=== PATIENT | female | born 1970 | race African-American/Black ===

== ENCOUNTER 2016-10-26 00:30 | Emergency (ER) | payer OTHER ==
[~2016-10-26] VITALS: Ht 157.5 cm; Wt 76.7 kg
[~2016-10-26 00:30] MED LIST: ALBUTEROL2.5 MG/3 M IH; BUPROPION XL150 MG PO; DESYREL100 MG PO; LEVOFLOXACIN750 MG PO; MOTRIN800 MG PO; NALTREXONE HCL50 MG PO; NOHOMEMEDS; NORCO 5/3251 TABLET PO; PREDNISONE10 MG PO; PREDNISONE20 MG PO; PROAIR HFA8.5 GM IH; PROVENTIL,2.5 MG/3 M IH; TRAZODONE HCL100 MG PO; ZITHROMAX250 MG PO
[2016-10-26] MEDS ORDERED: KEFLEX500 MG PO (03:58)
[2016-10-26 04:30] VITALS: BP 148/97
== END 2016-10-26 04:33 | disposition home or self-care (01) ==
LOC: EME 00:30
DX: S01.511A Laceration without foreign body of lip, initial encounter (principal); S05.11XA Contusion of eyeball and orbital tissues, right eye, initial encounter; Y04.8XXA Assault by other bodily force, initial encounter; Y07.59 Other non-family member, perpetrator of maltreatment and neglect; Z23 Encounter for immunization; J45.909 Unspecified asthma, uncomplicated; Z98.84 Bariatric surgery status; F17.200 Nicotine dependence, unspecified, uncomplicated
CPT/HCPCS: 70450; 70486; 99281; 99285

== ENCOUNTER 2016-10-28 12:19 | Emergency (ER) | payer OTHER ==
[~2016-10-28] VITALS: Ht 157.5 cm; Wt 77.6 kg
[~2016-10-28 12:19] MED LIST changes: +KEFLEX500 MG PO
[2016-10-28] MEDS ORDERED: PERCOCET 5/31 TABLET PO (15:09)
[2016-10-28 15:35] VITALS: BP 144/73
== END 2016-10-28 15:36 | disposition home or self-care (01) ==
LOC: EME 12:19
DX: S01.511D Laceration without foreign body of lip, subsequent encounter (principal)
CPT/HCPCS: 99281; 99283

== ENCOUNTER 2016-11-03 09:52 | Emergency (ER) | payer OTHER ==
[~2016-11-03] VITALS: Ht 157.5 cm; Wt 75.2 kg
[~2016-11-03 09:52] MED LIST changes: +PERCOCET 5/31 TABLET PO
[2016-11-03] MEDS ORDERED: NORCO 5/3251 TABLET PO (11:14)
[2016-11-03 11:37] VITALS: BP 132/91
== END 2016-11-03 11:39 | disposition home or self-care (01) ==
LOC: EME 09:52
DX: R51 Headache (principal); R22.0 Localized swelling, mass and lump, head; J45.909 Unspecified asthma, uncomplicated; F17.200 Nicotine dependence, unspecified, uncomplicated
CPT/HCPCS: 99281; 99283

== ENCOUNTER 2017-01-22 00:14 | Emergency (ER) | payer OTHER ==
[~2017-01-22] VITALS: Ht 157.5 cm; Wt 73.0 kg
[2017-01-22 00:24] VITALS: BP 97/52
[2017-01-22 01:12] LABS: HEMATOCRIT 35.9 % (36.0-46.0); MCH 27.2 PG (29.0-34.0); MCHC 31.8 G/DL (30.0-36.0); MCV 85.7 FL (83-99); MEAN PLAT.VOLUME 8.8 uM^3 (9.5-12.4); PLATELET COUNT 432 K/uL (156-360); RBC DIS.WIDTH-CV 20.1 % (11.8-14.6); RBC DIS.WIDTH-SD 62.7 % (39-53); RED BLOOD COUNT 4.19 M/uL (3.80-5.20); WHITE BLOOD COUNT 5.3 K/uL (4.1-10.2)
[2017-01-22 01:13] LABS: ADD MIUA? YES; BILIRUBIN NEGATIVE; BLOOD SMALL; COLOR STRAW ((YELLOW)); GLUCOSE (STRIP) NEGATIVE; KETONES NEGATIVE; LEUKOCYTES NEGATIVE; NITRITE NEGATIVE; PROTEIN (STRIP) NEGATIVE; SPECIFIC GRAVITY 1.003 (1.000-1.030); UROBILINOGEN 0.2 MG/DL (0.2-1.0)
[2017-01-22 01:18] LABS: BACTERIA NONE SEEN /HPF; EPITHELIAL CELLS RARE /HPF; MUCUS NONE SEEN /LPF; RED BLOOD CELLS 0-5 /HPF (0-5); UCUL ADDED? NO; WHITE BLOOD CELLS 0-5 /HPF (0-5)
[2017-01-22 01:24] LABS: CHLORIDE 113 mEq/L (99-109); POTASSIUM 3.3 mEq/L (3.7-5.4); SODIUM 145 mEq/L (136-147)
[2017-01-22 01:25] LABS: AMYLASE 78 IU/L (1-118)
[2017-01-22 01:26] LABS: GLUCOSE 104 mg/dL (70-99)
[2017-01-22 01:27] LABS: ANION GAP 15 MEQ/L (2-14)
[2017-01-22 01:29] LABS: SERUM ETHYL ALCOHOL 340 mg/dL
[2017-01-22 01:30] LABS: AMPHETAMINE NEGATIVE (500 ng/mL); BARBITURATES NEGATIVE (200 ng/mL); BENZODIAZEPINES NEGATIVE (150 ng/mL); COCAINE NEGATIVE (150 ng/mL); INTERNAL CONTROLS VALID? YES; METHADONE NEGATIVE (200 ng/mL); METHAMPHETAMINE NEGATIVE (500 ng/mL); OPIATES (MORPHINE) NEGATIVE (100 ng/mL); OXYCODONE NEGATIVE (100 ng/mL); PHENCYCLIDINE NEGATIVE (25 ng/mL); PROPOXYPHENE NEGATIVE (300 ng/mL); THC CANNABINOIDS NEGATIVE (50 ng/mL); TRICYCLIC ANTIDEPRESSANTS NEGATIVE (300 ng/mL)
[2017-01-22 01:30] LABS: GFR ESTIMATE (CALCULATED) > 59 mL/min/
[2017-01-22 01:32] LABS: UREA NITROGEN (BUN) 8 mg/dL (9-23)
[2017-01-22 01:33] LABS: SALICYLATE < 5.0 MG/DL (15-30)
[2017-01-22 01:34] LABS: LIPASE 80 U/L (1.0-51.0)
[2017-01-22 01:42] LABS: QUANTITATIVE HCG < 4.0 MIU/ML
[2017-01-22 02:56] LABS: EOSINOPHIL (%) 0.4 % (0-5); HEMATOLOGY COMMENT 1 SMEAR COMPATIBLE; IMMATURE GRANULOCYTE (%) 0.2 % (0.0-0.7); INSTRUMENT ABS NEUTROPHIL CT 2.9 K/uL; LYMPHOCYTE COUNT 1.6 K/uL (1.0-2.8); MONOCYTE (%) 14.3 % (3-12); MONOCYTE COUNT 0.8 K/uL (0-0.8); NEUTROPHIL (%) 54.1 % (45-76); NEUTROPHIL COUNT 2.9 K/uL (1.8-6.4)
[2017-01-22] MEDS ORDERED: MOTRIN600 MG PO (05:22)
[2017-01-22] MEDS ORDERED: TYLENOL WITH C1 EACH PO (05:22)
== END 2017-01-22 02:19 | disposition left against medical advice (07) ==
LOC: EME 00:14
PROVIDERS: Emergency Medicine
DX: S01.112A Laceration without foreign body of left eyelid and periocular area, initial encounter (principal); F10.129 Alcohol abuse with intoxication, unspecified; Y90.8 Blood alcohol level of 240 mg/100 ml or more; F19.10 Other psychoactive substance abuse, uncomplicated; Y09 Assault by unspecified means; J45.909 Unspecified asthma, uncomplicated; F17.210 Nicotine dependence, cigarettes, uncomplicated
CPT/HCPCS: 70450; 70486; 71010; 72125; 80048; 81003; 82150; 83690; 84702; 85025; 86900; 86901; 99281; 99285; G0480; J7030

== ENCOUNTER 2017-01-22 04:01 | Emergency (ER) | payer OTHER ==
[~2017-01-22] VITALS: Ht 157.5 cm; Wt 72.3 kg
[2017-01-22] MEDS ORDERED: TYLENOL WITH C1 EACH PO (05:22)
[2017-01-22] MEDS ORDERED: MOTRIN600 MG PO (05:22)
[2017-01-22 05:41] VITALS: BP 116/96
== END 2017-01-22 05:42 | disposition home or self-care (01) ==
LOC: EME 04:01
PROC: 0HQ1XZZ Repair Face Skin, External Approach (ICD-10-PCS; principal; 2017-01-22)
DX: S01.112A Laceration without foreign body of left eyelid and periocular area, initial encounter (principal); Y09 Assault by unspecified means; F17.200 Nicotine dependence, unspecified, uncomplicated
CPT/HCPCS: 99281; 99284

== ENCOUNTER 2017-04-11 22:48 | Emergency (ER) | payer OTHER ==
[~2017-04-11] VITALS: Ht 157.5 cm; Wt 73.8 kg
[~2017-04-11 22:48] MED LIST changes: +MOTRIN600 MG PO; +TYLENOL WITH C1 EACH PO
[2017-04-12 00:07] LABS: HEMATOCRIT 33.3 % (36.0-46.0); MCH 27.6 PG (29.0-34.0); MCHC 31.8 G/DL (30.0-36.0); MCV 86.7 FL (83-99); MEAN PLAT.VOLUME 9.3 uM^3 (9.5-12.4); NRBC (%) 0.4 /100 WBC (0-0); PLATELET COUNT 285 K/uL (156-360); RBC DIS.WIDTH-CV 22.6 % (11.8-14.6); RED BLOOD COUNT 3.84 M/uL (3.80-5.20); WHITE BLOOD COUNT 5.3 K/uL (4.1-10.2)
[2017-04-12 00:15] LABS: CHLORIDE 108 mEq/L (99-109); POTASSIUM 3.4 mEq/L (3.7-5.4); SODIUM 143 mEq/L (136-147)
[2017-04-12 00:17] LABS: GLUCOSE 86 mg/dL (70-99)
[2017-04-12 00:18] LABS: ANION GAP 14 MEQ/L (2-14)
[2017-04-12 00:19] LABS: TOTAL BILIRUBIN 0.4 mg/dL (0.0-1.0)
[2017-04-12 00:20] LABS: ALKALINE PHOSPHATASE 56 IU/L (3-129)
[2017-04-12 00:21] LABS: GFR ESTIMATE (CALCULATED) > 59 mL/min/
[2017-04-12 00:22] LABS: UREA NITROGEN (BUN) 8 mg/dL (9-23)
[2017-04-12] MEDS ORDERED: MEDROL DOSEPAK4 MG PO (00:30)
[2017-04-12] MEDS ORDERED: KEFLEX500 MG PO (00:30)
[2017-04-12 00:46] VITALS: BP 120/68
== END 2017-04-12 00:47 | disposition home or self-care (01) ==
LOC: EME 22:48
PROVIDERS: Physician Assistant
DX: M79.89 Other specified soft tissue disorders (principal); S80.862A Insect bite (nonvenomous), left lower leg, initial encounter; S80.861A Insect bite (nonvenomous), right lower leg, initial encounter; L08.9 Local infection of the skin and subcutaneous tissue, unspecified; W57.XXXA Bitten or stung by nonvenomous insect and other nonvenomous arthropods, initial encounter; T78.49XA Other allergy, initial encounter; Z90.710 Acquired absence of both cervix and uterus; Z98.84 Bariatric surgery status; F17.200 Nicotine dependence, unspecified, uncomplicated
CPT/HCPCS: 80053; 85027; 99281; 99284; J7512

== ENCOUNTER 2017-06-25 18:07 | Emergency (ER) | payer OTHER ==
[~2017-06-25] VITALS: Ht 157.5 cm; Wt 72.1 kg
[~2017-06-25 18:07] MED LIST changes: +MEDROL DOSEPAK4 MG PO
[2017-06-25 20:18] LABS: HEMATOCRIT 37.1 % (36.0-46.0); MCH 26.2 PG (29.0-34.0); MCHC 32.1 G/DL (30.0-36.0); MCV 81.5 FL (83-99); MEAN PLAT.VOLUME 9.1 uM^3 (9.5-12.4); PLATELET COUNT 333 K/uL (156-360); RBC DIS.WIDTH-CV 21.3 % (11.8-14.6); RBC DIS.WIDTH-SD 59.8 % (39-53); RED BLOOD COUNT 4.55 M/uL (3.80-5.20); WHITE BLOOD COUNT 3.6 K/uL (4.1-10.2)
[2017-06-25 20:27] LABS: CHLORIDE 106 mEq/L (99-109); POTASSIUM 3.9 mEq/L (3.7-5.4); SODIUM 139 mEq/L (136-147)
[2017-06-25 20:29] LABS: GLUCOSE 87 mg/dL (70-99)
[2017-06-25 20:30] LABS: ANION GAP 11 MEQ/L (2-14)
[2017-06-25 20:31] LABS: TOTAL BILIRUBIN 0.4 mg/dL (0.0-1.0)
[2017-06-25 20:32] LABS: ALKALINE PHOSPHATASE 64 IU/L (3-129)
[2017-06-25 20:33] LABS: GFR ESTIMATE (CALCULATED) > 59 mL/min/
[2017-06-25 20:34] LABS: UREA NITROGEN (BUN) 8 mg/dL (9-23)
[2017-06-25 20:36] LABS: URIC ACID 5.9 mg/dL (3.1-9.2)
[2017-06-25] MEDS ORDERED: LASIX20 MG PO (21:28)
[2017-06-25] MEDS ORDERED: MOBIC7.5 MG PO (21:28)
[2017-06-25] MEDS ORDERED: KEFLEX500 MG PO (21:28)
[2017-06-25 21:48] VITALS: BP 146/98
== END 2017-06-25 21:52 | disposition home or self-care (01) ==
LOC: EME 18:07
PROVIDERS: Physician Assistant
DX: R60.0 Localized edema (principal); R20.0 Anesthesia of skin; Z98.84 Bariatric surgery status; Z90.710 Acquired absence of both cervix and uterus; F17.200 Nicotine dependence, unspecified, uncomplicated
CPT/HCPCS: 80053; 83880; 84550; 85027; 93970; 99281; 99284

== ENCOUNTER 2017-08-23 13:15 | Emergency (ER) | payer OTHER ==
[~2017-08-23] VITALS: Ht 157.5 cm; Wt 98.8 kg
[~2017-08-23 13:15] MED LIST changes: +LASIX20 MG PO; +MOBIC7.5 MG PO
[2017-08-23 14:49] LABS: MCH 26.4 PG (29.0-34.0); MCHC 32.5 G/DL (30.0-36.0); MCV 81.1 FL (83-99); MEAN PLAT.VOLUME 8.9 uM^3 (9.5-12.4); NRBC (%) 0.9 /100 WBC (0-0); PLATELET COUNT 199 K/uL (156-360); RBC DIS.WIDTH-CV 24.8 % (11.8-14.6); RBC DIS.WIDTH-SD 72.5 % (39-53); RED BLOOD COUNT 4.44 M/uL (3.80-5.20); WHITE BLOOD COUNT 4.5 K/uL (4.1-10.2)
[2017-08-23 14:50] LABS: EOSINOPHIL (%) 0.2 % (0-5); IMMATURE GRANULOCYTE (%) 0.4 % (0.0-0.7); INSTRUMENT ABS NEUTROPHIL CT 3.2 K/uL; LYMPHOCYTE COUNT 0.5 K/uL (1.0-2.8); MONOCYTE (%) 17.3 % (3-12); MONOCYTE COUNT 0.8 K/uL (0-0.8); NEUTROPHIL COUNT 3.2 K/uL (1.8-6.4)
[2017-08-23 14:58] LABS: MAGNESIUM 1.8 mg/dL (1.3-2.7)
[2017-08-23 15:02] LABS: SERUM ETHYL ALCOHOL < 10 mg/dL
[2017-08-23 15:09] LABS: TROP-I INTERPRETATION NEGATIVE; TROPONIN-I < 0.01 ng/mL (0.0-0.30)
[2017-08-23] MEDS ORDERED: TYLENOL REGULA325 MG PO (17:37)
[2017-08-23] MEDS ORDERED: ZOFRAN4 MG PO (17:37)
[2017-08-23] MEDS ORDERED: PREDNISONE20 MG PO (17:37)
[2017-08-23 17:54] VITALS: BP 141/74
== END 2017-08-23 17:57 | disposition home or self-care (01) ==
LOC: EME 13:15
PROVIDERS: Emergency Medicine
DX: J06.9 Acute upper respiratory infection, unspecified (principal); J45.909 Unspecified asthma, uncomplicated; F10.20 Alcohol dependence, uncomplicated; Y90.0 Blood alcohol level of less than 20 mg/100 ml; F17.200 Nicotine dependence, unspecified, uncomplicated; Z98.84 Bariatric surgery status
CPT/HCPCS: 71020; 83735; 83880; 84484; 85025; 87502; 93005; 94640; 99281; 99285; G0480; J2405; J2930; J7030

== ENCOUNTER 2017-10-12 14:46 | Emergency (ER) | payer OTHER ==
[~2017-10-12] VITALS: Ht 157.5 cm; Wt 70.9 kg
[~2017-10-12 14:46] MED LIST changes: +TYLENOL REGULA325 MG PO; +ZOFRAN4 MG PO
[2017-10-12 15:15] LABS: HEMATOCRIT 34.5 % (36.0-46.0); HEMOGLOBIN 11.1 G/DL (11.9-15.5); MCH 28.2 PG (29.0-34.0); MCHC 32.2 G/DL (30.0-36.0); MCV 87.8 FL (83-99); PLATELET COUNT 223 K/uL (156-360); RBC DIS.WIDTH-CV 27.5 % (11.8-14.6); RBC DIS.WIDTH-SD 87.4 % (39-53); RED BLOOD COUNT 3.93 M/uL (3.80-5.20); WHITE BLOOD COUNT 4.7 K/uL (4.1-10.2)
[2017-10-12 15:24] LABS: CHLORIDE 106 mEq/L (99-109); POTASSIUM 3.1 mEq/L (3.7-5.4); SODIUM 140 mEq/L (136-147)
[2017-10-12 15:26] LABS: GLUCOSE 90 mg/dL (70-99)
[2017-10-12 15:29] LABS: CREATININE 0.7 mg/dL (0.6-1.3); GFR ESTIMATE (CALCULATED) > 59 mL/min/
[2017-10-12 15:30] LABS: UREA NITROGEN (BUN) 7 mg/dL (9-23)
[2017-10-12 15:39] LABS: TROP-I INTERPRETATION NEGATIVE; TROPONIN-I < 0.01 ng/mL (0.0-0.30)
[2017-10-12 15:51] LABS: SERUM ETHYL ALCOHOL 180 mg/dL
[2017-10-12 18:45] LABS: TROP-I INTERPRETATION NEGATIVE; TROPONIN-I < 0.01 ng/mL (0.0-0.30)
[2017-10-12] MEDS ORDERED: K-DUR20 MEQ PO (19:05)
[2017-10-12 19:14] VITALS: BP 123/79
== END 2017-10-12 19:15 | disposition home or self-care (01) ==
LOC: EME 14:46
PROVIDERS: Nurse Practitioner Family
DX: R07.2 Precordial pain (principal); F17.200 Nicotine dependence, unspecified, uncomplicated; J45.909 Unspecified asthma, uncomplicated; Z98.84 Bariatric surgery status; R06.02 Shortness of breath; F10.10 Alcohol abuse, uncomplicated; E87.6 Hypokalemia
CPT/HCPCS: 71046; 80048; 84484; 85027; 93005; 99281; 99285; G0480

== ENCOUNTER 2017-10-18 10:43 | Emergency (ER) | payer OTHER ==
[~2017-10-18] VITALS: Ht 157.5 cm; Wt 76.2 kg
[~2017-10-18 10:43] MED LIST changes: +K-DUR20 MEQ PO
[2017-10-18 11:18] LABS: HEMATOCRIT 32.1 % (36.0-46.0); HEMOGLOBIN 10.3 G/DL (11.9-15.5); MCH 28.5 PG (29.0-34.0); MCHC 32.1 G/DL (30.0-36.0); MCV 88.7 FL (83-99); RBC DIS.WIDTH-CV 26.9 % (11.8-14.6); RBC DIS.WIDTH-SD 87.2 % (39-53); RED BLOOD COUNT 3.62 M/uL (3.80-5.20); WHITE BLOOD COUNT 4.6 K/uL (4.1-10.2)
[2017-10-18 11:23] LABS: PLATELET COUNT 293 K/uL (156-360)
[2017-10-18 11:29] LABS: ALBUMIN 3.4 g/dL (3.2-4.8)
[2017-10-18 11:30] LABS: CHLORIDE 110 mEq/L (99-109); POTASSIUM 3.5 mEq/L (3.7-5.4); SODIUM 141 mEq/L (136-147)
[2017-10-18 11:32] LABS: GLUCOSE 80 mg/dL (70-99); TOTAL PROTEIN 6.3 g/dL (6.4-8.3)
[2017-10-18 11:34] LABS: TOTAL BILIRUBIN 0.6 mg/dL (0.0-1.0)
[2017-10-18 11:35] LABS: ALKALINE PHOSPHATASE 53 IU/L (3-129)
[2017-10-18 11:36] LABS: CREATININE 0.6 mg/dL (0.6-1.3); GFR ESTIMATE (CALCULATED) > 59 mL/min/
[2017-10-18 11:37] LABS: AST (GOT) 66 IU/L (2-34); UREA NITROGEN (BUN) 12 mg/dL (9-23)
[2017-10-18 11:38] LABS: ALT (GPT) 34 IU/L (3-49)
[2017-10-18 11:39] LABS: LIPASE 80 U/L (1.0-51.0)
[2017-10-18 11:45] LABS: BASOPHIL (%) 0.9 % (0-1); EOSINOPHIL (%) 0.2 % (0-5); IMMATURE GRANULOCYTE (%) 0.7 % (0.0-0.7); LYMPHOCYTE (%) 17.8 % (15-42); LYMPHOCYTE COUNT 0.8 K/uL (1.0-2.8); MONOCYTE (%) 16.5 % (3-12); MONOCYTE COUNT 0.8 K/uL (0-0.8); NEUTROPHIL (%) 63.9 % (45-76)
[2017-10-18] MEDS ORDERED: ULTRAM50 MG PO (15:22)
[2017-10-18 15:35] LABS: APPEARANCE SL.HAZY ((CLEAR)); BILIRUBIN NEGATIVE; BLOOD NEGATIVE; COLOR YELLOW ((YELLOW)); GLUCOSE (STRIP) NEGATIVE; KETONES NEGATIVE; LEUKOCYTES NEGATIVE; NITRITE NEGATIVE; PROTEIN (STRIP) 30; SPECIFIC GRAVITY 1.027 (1.000-1.030)
[2017-10-18 15:44] LABS: BACTERIA RARE /HPF; CALCIUM OXALATE CRYSTALS 4+ /HPF; EPITHELIAL CELLS 1+ /HPF; MUCUS TRACE /LPF; UCUL ADDED? NO; WHITE BLOOD CELLS 0-5 /HPF (0-5)
[2017-10-18 16:28] VITALS: BP 133/89
== END 2017-10-18 16:28 | disposition home or self-care (01) ==
LOC: EME 10:43
PROVIDERS: Emergency Medicine
DX: K43.9 Ventral hernia without obstruction or gangrene (principal); K76.0 Fatty (change of) liver, not elsewhere classified; J45.909 Unspecified asthma, uncomplicated; F17.200 Nicotine dependence, unspecified, uncomplicated; Z90.710 Acquired absence of both cervix and uterus; Z98.84 Bariatric surgery status
CPT/HCPCS: 74177; 80053; 81003; 83605; 83690; 85025; 99281; 99284; J1630; J3010; J7030

== ENCOUNTER 2017-11-13 20:50 | Emergency (ER) | payer OTHER ==
[~2017-11-13] VITALS: Ht 157.5 cm; Wt 71.3 kg
[~2017-11-13 20:50] MED LIST changes: +ULTRAM50 MG PO
[2017-11-13 22:05] LABS: APPEARANCE CLOUDY ((CLEAR)); BILIRUBIN NEGATIVE; BLOOD NEGATIVE; COLOR YELLOW ((YELLOW)); GLUCOSE (STRIP) NEGATIVE; KETONES NEGATIVE; LEUKOCYTES SMALL; NITRITE NEGATIVE; PROTEIN (STRIP) 30; SPECIFIC GRAVITY 1.013 (1.000-1.030)
[2017-11-13 22:27] LABS: HEMATOCRIT 37.2 % (36.0-46.0); MCH 28.4 PG (29.0-34.0); MCHC 32.3 G/DL (30.0-36.0); MCV 87.9 FL (83-99); NRBC (%) 0.4 /100 WBC (0-0); PLATELET COUNT 330 K/uL (156-360); RBC DIS.WIDTH-CV 25.2 % (11.8-14.6); RBC DIS.WIDTH-SD 80.2 % (39-53); RED BLOOD COUNT 4.23 M/uL (3.80-5.20); WHITE BLOOD COUNT 9.2 K/uL (4.1-10.2)
[2017-11-13 22:32] LABS: BACTERIA 2+ /HPF; EPITHELIAL CELLS 3+ /HPF; MUCUS NONE SEEN /LPF; RED BLOOD CELLS NONE SEEN /HPF (0-5); UCUL ADDED? YES
[2017-11-13 22:36] LABS: ALBUMIN 3.9 g/dL (3.2-4.8); CHLORIDE 106 mEq/L (99-109); POTASSIUM 3.1 mEq/L (3.7-5.4)
[2017-11-13 22:37] LABS: SODIUM 138 mEq/L (136-147)
[2017-11-13 22:39] LABS: GLUCOSE 89 mg/dL (70-99); TOTAL PROTEIN 7.5 g/dL (6.4-8.3)
[2017-11-13 22:41] LABS: TOTAL BILIRUBIN 0.8 mg/dL (0.0-1.0)
[2017-11-13 22:42] LABS: ALKALINE PHOSPHATASE 92 IU/L (3-129); SERUM ETHYL ALCOHOL 143 mg/dL
[2017-11-13 22:43] LABS: CREATININE 0.6 mg/dL (0.6-1.3); GFR ESTIMATE (CALCULATED) > 59 mL/min/
[2017-11-13 22:44] LABS: AST (GOT) 61 IU/L (2-34); UREA NITROGEN (BUN) 8 mg/dL (9-23)
[2017-11-13 22:45] LABS: ALT (GPT) 34 IU/L (3-49)
[2017-11-13 22:51] LABS: QUANTITATIVE HCG < 4.0 MIU/ML
[2017-11-13] MEDS ORDERED: ULTRACET1 TABLET PO (23:04)
[2017-11-13] MEDS ORDERED: ZOFRAN ODT8 MG PO (23:04)
[2017-11-13] MEDS ORDERED: BENTYL20 MG PO (23:04)
[2017-11-13 23:51] VITALS: BP 119/78
== END 2017-11-13 23:57 | disposition home or self-care (01) ==
LOC: EME 20:50
DX: K43.9 Ventral hernia without obstruction or gangrene (principal); E87.6 Hypokalemia; J45.909 Unspecified asthma, uncomplicated; F17.200 Nicotine dependence, unspecified, uncomplicated; Z87.19 Personal history of other diseases of the digestive system; Z98.84 Bariatric surgery status; Z90.710 Acquired absence of both cervix and uterus; Z90.49 Acquired absence of other specified parts of digestive tract
CPT/HCPCS: 80053; 81003; 83605; 84702; 85027; 87086; 99281; 99285; G0480

== ENCOUNTER 2017-12-11 07:59 | Day surgery (SDC) | payer OTHER ==
[~2017-12-11] VITALS: Ht 157.5 cm; Wt 71.7 kg
[~2017-12-11 07:59] MED LIST changes: +BENTYL20 MG PO; +ULTRACET1 TABLET PO; +ZOFRAN ODT8 MG PO
[2017-12-11 08:33] VITALS: BP 127/82
[2017-12-11 14:06] VITALS: BP 104/70
[2017-12-11 19:45] VITALS: BP 123/70
[2017-12-12 00:25] VITALS: BP 109/67
[2017-12-12 03:22] VITALS: BP 122/76
[2017-12-12 05:48] LABS: HEMATOCRIT 29.7 % (36.0-46.0); HEMOGLOBIN 9.3 G/DL (11.9-15.5); MCH 28.9 PG (29.0-34.0); MCHC 31.3 G/DL (30.0-36.0); MCV 92.2 FL (83-99); NRBC (%) 0.4 /100 WBC (0-0); RBC DIS.WIDTH-CV 26.7 % (11.8-14.6); RED BLOOD COUNT 3.22 M/uL (3.80-5.20); WHITE BLOOD COUNT 8.2 K/uL (4.1-10.2)
[2017-12-12 06:11] LABS: PLATELET COUNT 221 K/uL (156-360)
[2017-12-12 06:15] LABS: ALBUMIN 3.5 G/DL (3.2-4.8); ALKALINE PHOSPHATASE 44 IU/L (3-129); ALT (GPT) 24 IU/L (3-49); AST (GOT) 42 IU/L (2-34); CHLORIDE 107 MEQ/L (99-109); CREATININE 0.6 MG/DL (0.6-1.3); GFR ESTIMATE (CALCULATED) > 59 mL/min/; GLUCOSE 90 mg/dL (70-99); MAGNESIUM 2.1 mg/dl (1.3-2.7); PHOSPHORUS 3.1 mg/dL (2.5-4.9); POTASSIUM 3.5 MEQ/L (3.7-5.4); SODIUM 139 MEQ/L (136-147); TOTAL BILIRUBIN 0.7 MG/DL (0.0-1.0); UREA NITROGEN (BUN) 8 mg/dL (9-23)
[2017-12-12 06:16] LABS: TOTAL PROTEIN 5.9 G/DL (6.4-8.3)
[2017-12-12 07:06] VITALS: BP 126/69
[2017-12-12] MEDS ORDERED: PERCOCET 5/31 TABLET PO (08:36)
[2017-12-12] MEDS ORDERED: COLACE100 MG PO (08:36)
== END 2017-12-12 12:06 | disposition home or self-care (01) ==
LOC: SDC 07:59 → 2EAST 12:43 → 2SOUTH 12:43 → ENRESERV 12:49 → 2EAST 13:46 → SDC 15:00 → 2EAST 12-12 12:06
PROVIDERS: Surgery
PROC: 0DNU4ZZ Release Omentum, Percutaneous Endoscopic Approach (ICD-10-PCS; principal; 2017-12-11)
PROC: 0WUF4JZ Supplement Abdominal Wall with Synthetic Substitute, Percutaneous Endoscopic Approach (ICD-10-PCS; principal; 2017-12-11)
DX: K43.0 Incisional hernia with obstruction, without gangrene (principal); K66.0 Peritoneal adhesions (postprocedural) (postinfection); Z98.84 Bariatric surgery status; Z90.710 Acquired absence of both cervix and uterus; F17.200 Nicotine dependence, unspecified, uncomplicated
CPT/HCPCS: 80053; 83735; 84100; 85027; C1781; G0378; J0690; J1100; J1170; J1650; J1885; J2405; J2710; J2795; J3475; J7120; J7643; Q0175; S0020

== ENCOUNTER 2017-12-21 16:02 | Emergency (ER) | payer OTHER ==
[~2017-12-21] VITALS: Ht 157.5 cm; Wt 71.0 kg
[~2017-12-21 16:02] MED LIST changes: +COLACE100 MG PO
[2017-12-21 16:35] LABS: HEMATOCRIT 32.4 % (36.0-46.0); HEMOGLOBIN 10.8 G/DL (11.9-15.5); MCH 29.3 PG (29.0-34.0); MCHC 33.3 G/DL (30.0-36.0); MCV 87.8 FL (83-99); NRBC (%) 0.5 /100 WBC (0-0); PLATELET COUNT 457 K/uL (156-360); RED BLOOD COUNT 3.69 M/uL (3.80-5.20); WHITE BLOOD COUNT 5.7 K/uL (4.1-10.2)
[2017-12-21 16:41] LABS: CHLORIDE 104 mEq/L (99-109); POTASSIUM 3.3 mEq/L (3.7-5.4); SODIUM 138 mEq/L (136-147)
[2017-12-21 16:44] LABS: GLUCOSE 79 mg/dL (70-99); TOTAL PROTEIN 5.7 g/dL (6.4-8.3)
[2017-12-21 16:45] LABS: TOTAL BILIRUBIN 0.7 mg/dL (0.0-1.0)
[2017-12-21 16:46] LABS: SERUM ETHYL ALCOHOL 105 mg/dL
[2017-12-21 16:47] LABS: ALKALINE PHOSPHATASE 74 IU/L (3-129); CREATININE 0.6 mg/dL (0.6-1.3); GFR ESTIMATE (CALCULATED) > 59 mL/min/
[2017-12-21 16:48] LABS: UREA NITROGEN (BUN) 11 mg/dL (9-23)
[2017-12-21 16:49] LABS: AST (GOT) 48 IU/L (2-34)
[2017-12-21 16:50] LABS: ALT (GPT) 17 IU/L (3-49)
[2017-12-21 16:51] LABS: LIPASE 134 U/L (1.0-51.0)
[2017-12-21] MEDS ORDERED: ZOFRAN4 MG PO (18:25)
[2017-12-21 18:44] LABS: APPEARANCE CLEAR ((CLEAR)); BILIRUBIN NEGATIVE; BLOOD NEGATIVE; COLOR YELLOW ((YELLOW)); GLUCOSE (STRIP) NEGATIVE; KETONES 20; LEUKOCYTES NEGATIVE; NITRITE NEGATIVE; PROTEIN (STRIP) NEGATIVE; UCUL ADDED? NO
[2017-12-21 18:57] LABS: AMPHETAMINE NEGATIVE (500 ng/mL); BARBITURATES NEGATIVE (200 ng/mL); BENZODIAZEPINES NEGATIVE (150 ng/mL); BUPRENORPHINE NEGATIVE (10 ng/mL); COCAINE PRESUMPTIVE POSITIVE (150 ng/mL); METHADONE NEGATIVE (200 ng/mL); METHAMPHETAMINE NEGATIVE (500 ng/mL); OPIATES (MORPHINE) PRESUMPTIVE POSITIVE (100 ng/mL); OXYCODONE NEGATIVE (100 ng/mL); PHENCYCLIDINE NEGATIVE (25 ng/mL); PROPOXYPHENE NEGATIVE (300 ng/mL); THC CANNABINOIDS NEGATIVE (50 ng/mL); TRICYCLIC ANTIDEPRESSANTS NEGATIVE (300 ng/mL)
[2017-12-21 19:08] VITALS: BP 149/93
== END 2017-12-21 19:14 | disposition home or self-care (01) ==
LOC: EME 16:02
PROVIDERS: Emergency Medicine
DX: R10.9 Unspecified abdominal pain (principal); F10.129 Alcohol abuse with intoxication, unspecified; F19.10 Other psychoactive substance abuse, uncomplicated; K43.9 Ventral hernia without obstruction or gangrene; K76.0 Fatty (change of) liver, not elsewhere classified; I70.90 Unspecified atherosclerosis; J45.909 Unspecified asthma, uncomplicated; F41.9 Anxiety disorder, unspecified; F17.200 Nicotine dependence, unspecified, uncomplicated; Z98.890 Other specified postprocedural states; Z98.84 Bariatric surgery status; Z90.710 Acquired absence of both cervix and uterus; Z88.5 Allergy status to narcotic agent
CPT/HCPCS: 74177; 80053; 81003; 83690; 84999; 85027; 99281; 99285; G0480; J1630; J7030

== ENCOUNTER 2018-03-05 14:39 | Inpatient (IN) | payer OTHER ==
[~2018-03-05] VITALS: Ht 162.6 cm; Wt 68.0 kg
[2018-03-05 16:26] LABS: CHLORIDE 99 mEq/L (99-109); POTASSIUM 2.6 mEq/L (3.7-5.4); SODIUM 135 mEq/L (136-147)
[2018-03-05 16:27] LABS: BASOPHIL (%) 0.2 % (0-1); EOSINOPHIL (%) 0.3 % (0-5); HEMATOCRIT 31.4 % (36.0-46.0); HEMOGLOBIN 11.6 G/DL (11.9-15.5); IMMATURE GRANULOCYTE (%) 0.3 % (0.0-0.7); LYMPHOCYTE (%) 13.2 % (15-42); LYMPHOCYTE COUNT 0.8 K/uL (1.0-2.8); MCH 36.7 PG (29.0-34.0); MCHC 36.9 G/DL (30.0-36.0); MCV 99.4 FL (83-99); MONOCYTE (%) 11.5 % (3-12); MONOCYTE COUNT 0.7 K/uL (0-0.8); NEUTROPHIL (%) 74.5 % (45-76); NEUTROPHIL COUNT 4.4 K/uL (1.8-6.4); NRBC (%) 0.3 /100 WBC (0-0); PLATELET COUNT 177 K/uL (156-360); RBC DIS.WIDTH-CV 20.7 % (11.8-14.6); RBC DIS.WIDTH-SD 78.5 % (39-53); RED BLOOD COUNT 3.16 M/uL (3.80-5.20); WHITE BLOOD COUNT 5.9 K/uL (4.1-10.2)
[2018-03-05 16:28] LABS: GLUCOSE 109 mg/dL (70-99)
[2018-03-05 16:32] LABS: CREATININE 0.7 mg/dL (0.6-1.3); GFR ESTIMATE (CALCULATED) > 59 mL/min/
[2018-03-05 16:33] LABS: UREA NITROGEN (BUN) 8 mg/dL (9-23)
[2018-03-05 19:32] LABS: HEMATOCRIT 33.2 % (36.0-46.0); HEMOGLOBIN 12.4 G/DL (11.9-15.5); MCH 37.8 PG (29.0-34.0); MCHC 37.3 G/DL (30.0-36.0); MCV 101.2 FL (83-99); RBC DIS.WIDTH-CV 20.2 % (11.8-14.6); RBC DIS.WIDTH-SD 77.4 % (39-53); RED BLOOD COUNT 3.28 M/uL (3.80-5.20); WHITE BLOOD COUNT 6.1 K/uL (4.1-10.2)
[2018-03-05 19:40] LABS: ALBUMIN 2.7 g/dL (3.2-4.8)
[2018-03-05 19:41] LABS: MAGNESIUM 1.5 mg/dL (1.3-2.7)
[2018-03-05 19:43] LABS: TOTAL PROTEIN 5.6 g/dL (6.4-8.3)
[2018-03-05 19:46] LABS: ALKALINE PHOSPHATASE 91 IU/L (3-129)
[2018-03-05 19:48] LABS: AST (GOT) 83 IU/L (2-34)
[2018-03-05 19:49] LABS: ALT (GPT) 49 IU/L (3-49); DIRECT BILIRUBIN 1.2 mg/dL (0.0-0.3)
[2018-03-05 19:57] LABS: PLATELET COUNT 239 K/uL (156-360)
[2018-03-05 20:11] VITALS: BP 105/68
[2018-03-05 20:17] LABS: C-REACTIVE PROTEIN 3.8 MG/L (0-10)
[2018-03-05 22:09] LABS: HEMATOCRIT 32.2 % (36.0-46.0); HEMOGLOBIN 11.6 G/DL (11.9-15.5); MCV 102.2 FL (83-99)
[2018-03-06 05:47] LABS: HEMATOCRIT 27.4 % (36.0-46.0); HEMOGLOBIN 9.5 G/DL (11.9-15.5); MCV 105.4 FL (83-99)
[2018-03-06 05:59] LABS: CHLORIDE 105 MEQ/L (99-109); CREATININE 0.7 MG/DL (0.6-1.3); GFR ESTIMATE (CALCULATED) > 59 mL/min/; SODIUM 135 MEQ/L (136-147); UREA NITROGEN (BUN) 8 mg/dL (9-23)
[2018-03-06 06:01] LABS: GLUCOSE 80 mg/dL (70-99)
[2018-03-06 06:02] LABS: POTASSIUM 3.7 MEQ/L (3.7-5.4)
[2018-03-06 09:00] VITALS: BP 98/53
[2018-03-06 11:18] VITALS: BP 120/58
[2018-03-06 16:43] LABS: HEMATOCRIT 29.9 % (36.0-46.0); HEMOGLOBIN 10.5 G/DL (11.9-15.5); MCV 107.6 FL (83-99)
[2018-03-06 16:52] VITALS: BP 117/84
[2018-03-06 18:21] LABS: STOOL OCCULT BLD 1ST SPECIMEN NEGATIVE
[2018-03-06 18:57] LABS: C DIFF TOXIN NEGATIVE (NEGATIVE)
[2018-03-06 19:55] LABS: HEMATOCRIT 35.2 % (36.0-46.0); MCV 108.3 FL (83-99)
[2018-03-06 20:00] VITALS: BP 122/86
[2018-03-07 00:09] VITALS: BP 98/68
[2018-03-07 04:45] VITALS: BP 108/68
== END 2018-03-07 06:42 | disposition left against medical advice (07) | DRG 392 ==
LOC: EME 14:39 → EDOF 18:21 → 4SOUTH 18:21 → ENRESERV 18:26 → 4SOUTH 19:31
PROVIDERS: Emergency Medicine; Hospitalist; Internal Medicine; Nurse Practitioner Adult Health
DX: K52.9 Noninfective gastroenteritis and colitis, unspecified (principal); E87.6 Hypokalemia; E87.2 Acidosis; K70.0 Alcoholic fatty liver; D53.9 Nutritional anemia, unspecified; F10.20 Alcohol dependence, uncomplicated; J45.909 Unspecified asthma, uncomplicated; F31.9 Bipolar disorder, unspecified; F41.9 Anxiety disorder, unspecified; F17.200 Nicotine dependence, unspecified, uncomplicated; Z98.84 Bariatric surgery status; Z98.890 Other specified postprocedural states; Z90.49 Acquired absence of other specified parts of digestive tract; Z90.710 Acquired absence of both cervix and uterus
CPT/HCPCS: 74177; 80048; 80076; 82272; 83605; 83735; 85014; 85018; 85025; 85027; 86140; 86850; 86900; 86901; 87177; 87493; 93005; 99281; 99285; G0378; J0744; J1885; J2270; J2405; J3475; J3480; J7030; J7050; S0028; S0030

== ENCOUNTER 2018-03-10 23:07 | Inpatient (IN) | payer OTHER ==
[~2018-03-10] VITALS: Ht 157.5 cm; Wt 78.2 kg
[2018-03-11 00:08] LABS: TROP-I INTERPRETATION NEGATIVE; TROPONIN-I 0.02 ng/mL (0.0-0.30)
[2018-03-11 00:19] LABS: APPEARANCE CLEAR ((CLEAR)); BILIRUBIN NEGATIVE; BLOOD NEGATIVE; COLOR YELLOW ((YELLOW)); GLUCOSE (STRIP) NEGATIVE; KETONES NEGATIVE; LEUKOCYTES NEGATIVE; NITRITE NEGATIVE; PROTEIN (STRIP) 30; SPECIFIC GRAVITY 1.015 (1.000-1.030); UCUL ADDED? NO; UROBILINOGEN 0.2 MG/DL (0.2-1.0)
[2018-03-11 00:26] LABS: CHLORIDE 114 mEq/L (99-109); SODIUM 143 mEq/L (136-147)
[2018-03-11 00:27] LABS: GLUCOSE 90 mg/dL (70-99)
[2018-03-11 00:30] LABS: CREATININE 0.7 mg/dL (0.6-1.3); GFR ESTIMATE (CALCULATED) > 59 mL/min/
[2018-03-11 00:31] LABS: UREA NITROGEN (BUN) 9 mg/dL (9-23)
[2018-03-11 00:36] LABS: AMPHETAMINE NEGATIVE (500 ng/mL); BARBITURATES NEGATIVE (200 ng/mL); BENZODIAZEPINES PRESUMPTIVE POSITIVE (150 ng/mL); BUPRENORPHINE NEGATIVE (10 ng/mL); COCAINE PRESUMPTIVE POSITIVE (150 ng/mL); METHADONE NEGATIVE (200 ng/mL); METHAMPHETAMINE NEGATIVE (500 ng/mL); OPIATES (MORPHINE) PRESUMPTIVE POSITIVE (100 ng/mL); OXYCODONE NEGATIVE (100 ng/mL); PHENCYCLIDINE NEGATIVE (25 ng/mL); THC CANNABINOIDS NEGATIVE (50 ng/mL); TRICYCLIC ANTIDEPRESSANTS NEGATIVE (300 ng/mL)
[2018-03-11 00:37] LABS: PROPOXYPHENE NEGATIVE (300 ng/mL)
[2018-03-11 01:08] LABS: BENZODIAZEPINES, URINE SCREEN POSITIVE (200 ng/mL)
[2018-03-11 01:16] LABS: HEMATOCRIT 28.2 % (36.0-46.0); HEMOGLOBIN 10.1 G/DL (11.9-15.5); MCH 38.7 PG (29.0-34.0); MCHC 35.8 G/DL (30.0-36.0); RBC DIS.WIDTH-CV 20.8 % (11.8-14.6); RBC DIS.WIDTH-SD 83.7 % (39-53); WHITE BLOOD COUNT 9.3 K/uL (4.1-10.2)
[2018-03-11 01:18] LABS: PLATELET COUNT 346 K/uL (156-360); RED BLOOD COUNT 2.61 M/uL (3.80-5.20)
[2018-03-11 01:25] LABS: ALBUMIN 2.6 g/dL (3.2-4.8)
[2018-03-11 01:27] LABS: TOTAL PROTEIN 5.2 g/dL (6.4-8.3)
[2018-03-11 01:30] LABS: ALKALINE PHOSPHATASE 72 IU/L (3-129); SERUM ETHYL ALCOHOL 52 mg/dL; TOTAL BILIRUBIN 0.7 mg/dL (0.0-1.0)
[2018-03-11 01:32] LABS: AST (GOT) 103 IU/L (2-34)
[2018-03-11 01:33] LABS: ALT (GPT) 52 IU/L (3-49)
[2018-03-11 01:34] LABS: LIPASE 27 U/L (1.0-51.0)
[2018-03-11 01:39] LABS: DIRECT BILIRUBIN 0.4 mg/dL (0.0-0.3)
[2018-03-11 05:20] LABS: HEMATOCRIT 27.7 % (36.0-46.0); HEMOGLOBIN 9.9 G/DL (11.9-15.5); MCH 38.5 PG (29.0-34.0); MCHC 35.7 G/DL (30.0-36.0); MCV 107.8 FL (83-99); PLATELET COUNT 345 K/uL (156-360); RBC DIS.WIDTH-CV 20.7 % (11.8-14.6); RBC DIS.WIDTH-SD 85.4 % (39-53); RED BLOOD COUNT 2.57 M/uL (3.80-5.20); WHITE BLOOD COUNT 9.8 K/uL (4.1-10.2)
[2018-03-11 05:33] LABS: CHLORIDE 112 mEq/L (99-109); SODIUM 143 mEq/L (136-147)
[2018-03-11 05:35] LABS: GLUCOSE 127 mg/dL (70-99)
[2018-03-11 05:39] LABS: CREATININE 0.7 mg/dL (0.6-1.3); GFR ESTIMATE (CALCULATED) > 59 mL/min/
[2018-03-11 05:40] LABS: UREA NITROGEN (BUN) 7 mg/dL (9-23)
[2018-03-11 05:56] VITALS: BP 115/68
[2018-03-11 07:25] VITALS: BP 105/60
[2018-03-11 11:00] VITALS: BP 105/67
[2018-03-11 15:15] VITALS: BP 108/62
[2018-03-11 19:24] VITALS: BP 111/64
[2018-03-11 23:11] VITALS: BP 123/74
[2018-03-12 03:40] VITALS: BP 120/69
[2018-03-12 06:58] LABS: CHLORIDE 111 MEQ/L (99-109); CREATININE 0.6 MG/DL (0.6-1.3); GFR ESTIMATE (CALCULATED) > 59 mL/min/; GLUCOSE 100 mg/dL (70-99); POTASSIUM 3.6 MEQ/L (3.7-5.4); SODIUM 140 MEQ/L (136-147); UREA NITROGEN (BUN) 6 mg/dL (9-23)
[2018-03-12 07:08] VITALS: BP 119/83
[2018-03-12 07:52] LABS: MAGNESIUM 1.9 mg/dl (1.3-2.7)
[2018-03-12 08:25] LABS: HEMATOCRIT 24.7 % (36.0-46.0); HEMOGLOBIN 8.6 G/DL (11.9-15.5); MCH 37.9 PG (29.0-34.0); MCHC 34.8 G/DL (30.0-36.0); MCV 108.8 FL (83-99); PLATELET COUNT 311 K/uL (156-360); RBC DIS.WIDTH-CV 20.4 % (11.8-14.6); RBC DIS.WIDTH-SD 83.2 % (39-53); RED BLOOD COUNT 2.27 M/uL (3.80-5.20); WHITE BLOOD COUNT 7.1 K/uL (4.1-10.2)
[2018-03-12 11:00] VITALS: BP 97/69
[2018-03-12 16:10] VITALS: BP 101/67
[2018-03-12 19:35] VITALS: BP 109/76
[2018-03-12 23:50] VITALS: BP 110/73
[2018-03-13 03:53] VITALS: BP 97/59
[2018-03-13 06:18] LABS: BASOPHIL (%) 0.1 % (0-1); EOSINOPHIL (%) 0.1 % (0-5); HEMATOCRIT 29.1 % (36.0-46.0); HEMOGLOBIN 9.8 G/DL (11.9-15.5); IMMATURE GRANULOCYTE (%) 0.6 % (0.0-0.7); LYMPHOCYTE (%) 17.1 % (15-42); LYMPHOCYTE COUNT 1.2 K/uL (1.0-2.8); MCH 36.8 PG (29.0-34.0); MCHC 33.7 G/DL (30.0-36.0); MCV 109.4 FL (83-99); MONOCYTE (%) 10.5 % (3-12); MONOCYTE COUNT 0.7 K/uL (0-0.8); NEUTROPHIL (%) 71.6 % (45-76); NRBC (%) 0.6 /100 WBC (0-0); PLATELET COUNT 317 K/uL (156-360); RBC DIS.WIDTH-CV 20.5 % (11.8-14.6); RBC DIS.WIDTH-SD 84.2 % (39-53); RED BLOOD COUNT 2.66 M/uL (3.80-5.20)
[2018-03-13 06:43] LABS: ALBUMIN 2.6 G/DL (3.2-4.8); CHLORIDE 113 MEQ/L (99-109); CREATININE 0.7 MG/DL (0.6-1.3); GFR ESTIMATE (CALCULATED) > 59 mL/min/; PHOSPHORUS 2.4 mg/dL (2.5-4.9); SODIUM 144 MEQ/L (136-147); UREA NITROGEN (BUN) 7 mg/dL (9-23)
[2018-03-13 06:46] LABS: GLUCOSE 68 mg/dL (70-99)
[2018-03-13 08:28] VITALS: BP 107/56
[2018-03-13 11:45] VITALS: BP 102/84
[2018-03-13 12:38] LABS: STOOL OCCULT BLD 1ST SPECIMEN NEGATIVE
== END 2018-03-13 16:14 | disposition left against medical advice (07) | DRG 392 ==
LOC: EME 23:07 → EDOF 03-11 04:17 → 5EAST 03-11 04:17 → ENRESERV 03-11 04:22 → 5EAST 03-11 05:39
PROVIDERS: Emergency Medicine; Hospitalist; Internal Medicine; Internal Medicine Gastroenterology; Physician Assistant
DX: K52.9 Noninfective gastroenteritis and colitis, unspecified (principal); E87.2 Acidosis; E87.6 Hypokalemia; E86.0 Dehydration; J44.1 Chronic obstructive pulmonary disease with (acute) exacerbation; E88.09 Other disorders of plasma-protein metabolism, not elsewhere classified; F31.9 Bipolar disorder, unspecified; F14.10 Cocaine abuse, uncomplicated; K70.10 Alcoholic hepatitis without ascites; K64.8 Other hemorrhoids; F10.20 Alcohol dependence, uncomplicated; F17.200 Nicotine dependence, unspecified, uncomplicated; Z91.19 Patient's noncompliance with other medical treatment and regimen; Z98.84 Bariatric surgery status; B37.9 Candidiasis, unspecified; D53.9 Nutritional anemia, unspecified
CPT/HCPCS: 71046; 74177; 80048; 80069; 80076; 81003; 82140; 82272; 83605; 83690; 83735; 83880; 84484; 84999; 85025; 85027; 86850; 86900; 86901; 87040; 87177; 87493; 87506; 88305; 93005; 93970; 94640; 94799; 99281; 99285; G0480; J0744; J1650; J2270; J2405; J3475; J3480; J7030; J7120; J7512; S0030

== ENCOUNTER 2018-04-03 15:59 | Inpatient (IN) | payer OTHER ==
[~2018-04-03] VITALS: Ht 157.5 cm; Wt 67.1 kg
[2018-04-03 18:03] LABS: HEMATOCRIT 28.2 % (36.0-46.0); HEMOGLOBIN 10.1 G/DL (11.9-15.5); MCH 36.5 PG (29.0-34.0); MCHC 35.8 G/DL (30.0-36.0); MCV 101.8 FL (83-99); PLATELET COUNT 501 K/uL (156-360); RBC DIS.WIDTH-CV 17.4 % (11.8-14.6); RBC DIS.WIDTH-SD 64.8 % (39-53); RED BLOOD COUNT 2.77 M/uL (3.80-5.20); WHITE BLOOD COUNT 7.5 K/uL (4.1-10.2)
[2018-04-03 18:11] LABS: ALBUMIN 2.7 g/dL (3.2-4.8); CHLORIDE 115 mEq/L (99-109); POTASSIUM 2.8 mEq/L (3.7-5.4); SODIUM 146 mEq/L (136-147)
[2018-04-03 18:13] LABS: GLUCOSE 83 mg/dL (70-99)
[2018-04-03 18:14] LABS: TOTAL PROTEIN 5.6 g/dL (6.4-8.3)
[2018-04-03 18:15] LABS: TOTAL BILIRUBIN 0.5 mg/dL (0.0-1.0)
[2018-04-03 18:16] LABS: SERUM ETHYL ALCOHOL < 10 mg/dL
[2018-04-03 18:17] LABS: ALKALINE PHOSPHATASE 113 IU/L (3-129); CREATININE 1.4 mg/dL (0.6-1.3); GFR ESTIMATE (CALCULATED) 51 mL/min/
[2018-04-03 18:18] LABS: UREA NITROGEN (BUN) 6 mg/dL (9-23)
[2018-04-03 18:19] LABS: AST (GOT) 60 IU/L (2-34)
[2018-04-03 18:20] LABS: ALT (GPT) 21 IU/L (3-49)
[2018-04-03 18:23] LABS: TROP-I INTERPRETATION NEGATIVE; TROPONIN-I < 0.01 ng/mL (0.0-0.30)
[2018-04-03 18:26] LABS: QUANTITATIVE HCG < 4.0 MIU/ML
[2018-04-03] MEDS ORDERED: CIPROFLOXACIN500 M1 PO (21:01)
[2018-04-03] MEDS ORDERED: METRONIDAZOLE500 MG PO (21:01)
[2018-04-04 00:01] VITALS: BP 117/73
[2018-04-04 01:00] LABS: MAGNESIUM 1.9 mg/dL (1.3-2.7)
[2018-04-04 06:03] LABS: BASOPHIL (%) 0.4 % (0-1); EOSINOPHIL (%) 0.4 % (0-5); HEMATOCRIT 28.4 % (36.0-46.0); HEMOGLOBIN 9.9 G/DL (11.9-15.5); IMMATURE GRANULOCYTE (%) 0.4 % (0.0-0.7); LYMPHOCYTE (%) 24.5 % (15-42); LYMPHOCYTE COUNT 1.3 K/uL (1.0-2.8); MCHC 34.9 G/DL (30.0-36.0); MCV 103.3 FL (83-99); MONOCYTE (%) 10.9 % (3-12); MONOCYTE COUNT 0.6 K/uL (0-0.8); NEUTROPHIL (%) 63.4 % (45-76); NEUTROPHIL COUNT 3.5 K/uL (1.8-6.4); PLATELET COUNT 446 K/uL (156-360); RBC DIS.WIDTH-CV 17.4 % (11.8-14.6); RBC DIS.WIDTH-SD 65.7 % (39-53); RED BLOOD COUNT 2.75 M/uL (3.80-5.20); WHITE BLOOD COUNT 5.4 K/uL (4.1-10.2)
[2018-04-04 06:22] LABS: CHLORIDE 114 MEQ/L (99-109); CREATININE 1.1 MG/DL (0.6-1.3); GFR ESTIMATE (CALCULATED) > 59 mL/min/; GLUCOSE 76 mg/dL (70-99); SODIUM 143 MEQ/L (136-147); UREA NITROGEN (BUN) 6 mg/dL (9-23)
[2018-04-04 07:32] VITALS: BP 116/67
[2018-04-04 11:45] VITALS: BP 129/95
[2018-04-04 12:40] LABS: BILIRUBIN NEGATIVE; BLOOD NEGATIVE; COLOR YELLOW ((YELLOW)); GLUCOSE (STRIP) NEGATIVE; KETONES 5; LEUKOCYTES NEGATIVE; NITRITE NEGATIVE; PROTEIN (STRIP) NEGATIVE; SPECIFIC GRAVITY 1.033 (1.000-1.030); UROBILINOGEN 0.2 MG/DL (0.2-1.0)
[2018-04-04 12:48] LABS: APPEARANCE CLEAR ((CLEAR))
[2018-04-04 15:31] LABS: C DIFF TOXIN NEGATIVE (NEGATIVE)
[2018-04-04 15:48] VITALS: BP 114/84
[2018-04-04 20:04] VITALS: BP 118/90
[2018-04-04 20:11] LABS: ALBUMIN 2.7 g/dL (3.2-4.8); CHLORIDE 115 mEq/L (99-109); POTASSIUM 3.4 mEq/L (3.7-5.4); SODIUM 143 mEq/L (136-147)
[2018-04-04 20:13] LABS: GLUCOSE 54 mg/dL (70-99)
[2018-04-04 20:15] LABS: TOTAL BILIRUBIN 0.5 mg/dL (0.0-1.0)
[2018-04-04 20:17] LABS: ALKALINE PHOSPHATASE 102 IU/L (3-129); CREATININE 1.5 mg/dL (0.6-1.3); GFR ESTIMATE (CALCULATED) 48 mL/min/; PHOSPHORUS 1.7 mg/dL (2.5-4.9)
[2018-04-04 20:18] LABS: UREA NITROGEN (BUN) 5 mg/dL (9-23)
[2018-04-04 20:19] LABS: AST (GOT) 39 IU/L (2-34)
[2018-04-04 20:20] LABS: ALT (GPT) 20 IU/L (3-49); CREATINE KINASE 160 IU/L (1-294)
[2018-04-04 20:25] LABS: MAGNESIUM 1.6 mg/dL (1.3-2.7)
[2018-04-04 23:57] VITALS: BP 114/75
[2018-04-05 03:48] VITALS: BP 107/75
[2018-04-05 05:51] LABS: HEMATOCRIT 29.1 % (36.0-46.0); HEMOGLOBIN 9.9 G/DL (11.9-15.5); MCH 35.6 PG (29.0-34.0); MCV 104.7 FL (83-99); PLATELET COUNT 343 K/uL (156-360); RBC DIS.WIDTH-CV 16.6 % (11.8-14.6); RBC DIS.WIDTH-SD 63.7 % (39-53); RED BLOOD COUNT 2.78 M/uL (3.80-5.20); WHITE BLOOD COUNT 4.4 K/uL (4.1-10.2)
[2018-04-05 06:17] LABS: CHLORIDE 114 MEQ/L (99-109); GFR ESTIMATE (CALCULATED) > 59 mL/min/; POTASSIUM 3.3 MEQ/L (3.7-5.4); SODIUM 142 MEQ/L (136-147); UREA NITROGEN (BUN) 4 mg/dL (9-23)
[2018-04-05 06:23] LABS: CREATININE 0.9 MG/DL (0.6-1.3); GLUCOSE 87 mg/dL (70-99)
[2018-04-05 07:22] VITALS: BP 113/63
[2018-04-05 08:21] LABS: MAGNESIUM 1.8 mg/dl (1.3-2.7)
[2018-04-05 15:30] VITALS: BP 111/82
[2018-04-05 20:21] VITALS: BP 114/73
[2018-04-05 23:46] VITALS: BP 112/76
[2018-04-06 04:53] VITALS: BP 134/73
[2018-04-06 08:33] VITALS: BP 108/70
[2018-04-06 08:51] LABS: HEMATOCRIT 28.2 % (36.0-46.0); HEMOGLOBIN 9.6 G/DL (11.9-15.5); MCH 36.2 PG (29.0-34.0); MCV 106.4 FL (83-99); NRBC (%) 0.4 /100 WBC (0-0); PLATELET COUNT 385 K/uL (156-360); RBC DIS.WIDTH-CV 16.6 % (11.8-14.6); RBC DIS.WIDTH-SD 65.2 % (39-53); RED BLOOD COUNT 2.65 M/uL (3.80-5.20); WHITE BLOOD COUNT 5.1 K/uL (4.1-10.2)
[2018-04-06 09:14] LABS: CHLORIDE 120 MEQ/L (99-109); CREATININE 0.7 MG/DL (0.6-1.3); GFR ESTIMATE (CALCULATED) > 59 mL/min/; GLUCOSE 89 mg/dL (70-99); POTASSIUM 3.3 MEQ/L (3.7-5.4); SODIUM 147 MEQ/L (136-147); UREA NITROGEN (BUN) 4 mg/dL (9-23)
[2018-04-06 15:53] VITALS: BP 96/61
[2018-04-07 00:57] VITALS: BP 105/75
== END 2018-04-07 08:00 | disposition left against medical advice (07) | DRG 683 ==
LOC: EME 15:59 → 5SOUTH 21:54 → EDOF 21:54 → ENRESERV 21:55 → 5SOUTH 23:18
PROVIDERS: Hospitalist; Internal Medicine; Physician Assistant Medical
DX: N17.9 Acute kidney failure, unspecified (principal); E86.0 Dehydration; K52.9 Noninfective gastroenteritis and colitis, unspecified; F10.239 Alcohol dependence with withdrawal, unspecified; E87.2 Acidosis; E16.2 Hypoglycemia, unspecified; E87.6 Hypokalemia; R18.8 Other ascites; E83.51 Hypocalcemia; F31.9 Bipolar disorder, unspecified; B37.3 Candidiasis of vulva and vagina; F17.210 Nicotine dependence, cigarettes, uncomplicated; F41.9 Anxiety disorder, unspecified; J44.9 Chronic obstructive pulmonary disease, unspecified; F12.90 Cannabis use, unspecified, uncomplicated; K64.8 Other hemorrhoids; D64.9 Anemia, unspecified; R32 Unspecified urinary incontinence; F16.90 Hallucinogen use, unspecified, uncomplicated; Z81.8 Family history of other mental and behavioral disorders; Z80.6 Family history of leukemia; Z98.84 Bariatric surgery status; Z90.710 Acquired absence of both cervix and uterus; S09.90XA Unspecified injury of head, initial encounter; W07.XXXA Fall from chair, initial encounter; Y92.89 Other specified places as the place of occurrence of the external cause; Y93.89 Activity, other specified
CPT/HCPCS: 70450; 72149; 72158; 74177; 80048; 80053; 81003; 82550; 82607; 82948; 83605; 83630; 83735; 84100; 84484; 84702; 85025; 85027; 87040; 87177; 87493; 87506; 87801; 93005; 94799; 97530 GP; 99281; 99285; C1753; G0480; J0744; J1200; J1630; J1644; J2060; J3411; J3475; J3480; J3486; J7030; J7050; J7120; S0030